=== PATIENT | female | born 1960 | race Caucasian/White ===

== ENCOUNTER 2016-07-05 11:56 | Inpatient (IN) | payer SELFPAY ==
[~2016-07-05] VITALS: Ht 157.5 cm; Wt 85.6 kg
[~2016-07-05 11:56] MED LIST: ADDE10XR PO; CITA20 PO; CLAR5TAB PO; CLIN1CAP6 PO; HYDR-3129 PO; MINO100T PO; NORC7.5T PO; ZOLP10TA3 PO
[2016-07-05 11:58] VITALS: BP 147/96; PULSE 110; RESP 20; TEMP 97.9; O2SAT 99
--- NOTE | 2016-07-05 12:04 | PD ---
Physical Exam Date Seen by Provider: Jul 05, 2016 Time Seen by Provider: 12:02 Narrative 55 yo female that fell while drinking on friday into her left wrist. No head injury or loss of consciousness. Pain to the left wrist. Pain not improved thus she came here. No other injuries reported. Pain is 7/10. Vitals sign stable. Patient awaiting bed placement Data Data Last Documented VS Vital Signs Date Time Temp Pulse Resp B/P Pulse Ox O2 Delivery O2 Flow Rate FiO2 07/05/16 11:58 97.9 110 20 147/96 99 Room Air [facility] Medical Record Reviewed: Yes Supervised Visit with JOSE LUIS: Lobo Bernstein Jul 05, 2016 12:04
--- NOTE | 2016-07-05 12:21 | PD ---
HPI Chief Complaint: Injury Time Seen by Provider: 12:17 Travel History International Travel<30 days: No Contact w/Intl Traveler<30days: No Traveled to known affect area: No History of Present Illness HPI 55-year-old female presents to the emergency Department with complaint of left wrist pain since Friday after tripping and falling while intoxicated. Denies paresthesias, loss of sensation to the affected extremity. Reports his range of motion, swelling, and pain to the left wrist. Denies fever, chills, nausea, vomiting. Has taken ibuprofen and last took today prior to arrival. Pain is constant and aggravated with movement and palpation. Has no other medical complaints. No other modifying factors or associated signs and symptoms. PFSH Past Medical History Hx Anticoagulant Therapy: Yes (ASA PO DAILY) ADD: Yes Arthritis: Yes Autoimmune Disease: Yes (FIBROMYLGIA) Blood Disorders: Yes (CLOTTING FACTOR-CARDIOLUPIN ANTIBODY) Depression: Yes Cancer: No Cardiovascular Problems: No Diabetes: No Diminished Hearing: No Endocrine: No Gastrointestinal Disorders: Yes (REFLUX) Genitourinary: No Hepatitis: No Hiatal Hernia: Yes Immune Disorder: No Musculoskeletal: Yes (BACK FRACTURE, CHRONIC BACK AND ANKLE PAIN,NECK, ARTHRITIES,OSTEOPOROSIS) Neurologic: No Psychiatric: Yes (ANXIETY DEPRESSION) Respiratory: Yes (COPD) Migraines: Yes Thyroid Disease: No Tetanus Vaccination: Unknown Tubal Ligation: Yes Past Surgical History Abdominal Surgery: Yes (GASTRIC BYPASS, HERNIA REPAIR) Body Medical Devices: HARDWARE IN RIGHT ANKLE Cholecystectomy: Yes Gynecologic Surgery: Yes (TUBAL LIGATION) Hysterectomy: Yes Oral Surgery: Yes (TONSILECTOMY) Pacemaker: No Tonsillectomy: Yes Other Surgery: Yes (HERNIA REPAIR) Family History Family Myocardial Infarction: Yes Social History Alcohol Use: Yes (WEEKLY) Tobacco Use: Yes (1 PPD) Substance Use: Yes (ALCOHOL ABUSE) Allergies-Medications (Allergen,Severity, Reaction): Coded Allergies: Darvocet-N 100 (Verified Allergy, Severe, NAUSEA, 07/05/16) *MDRO Multi-Drug Resistant Organism (Verified Adverse Reaction, Unknown, ) 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 HEAD: Atraumatic. Normocephalic. EYES: Pupils equal and round. No scleral icterus. No injection or drainage. ENT: Mucosa pink and moist. Airway patent. NECK: Trachea midline. CARDIOVASCULAR: Regular rate. RESPIRATORY: No accessory muscle use. GASTROINTESTINAL: Rounded. MUSCULOSKELETAL: Left wrist is edematous and ecchymosis noted to the anterior aspect; without erythema; no obvious deformity; with tenderness on palpation; fingers with full range of motion and sensory intact. Left upper extremity supple and non-tense a 2+ radial pulses and sensory intact. No obvious deformities. No clubbing. No cyanosis. NEUROLOGICAL: Awake and alert. Oriented 3. No obvious cranial nerve deficits. Motor grossly within normal limits. Normal speech. PSYCHIATRIC: Appropriate mood and affect; insight and judgment normal. Data Data Last Documented VS Vital Signs Date Time Temp Pulse Resp B/P Pulse Ox O2 Delivery O2 Flow Rate FiO2 07/05/16 11:58 97.9 110 20 147/96 99 Room Air Orders Wrist, Complete ([id number]) (07/05/16 12:14) Acetamin-Hydrocod 325-5 Mg ([place] 5-325 (07/05/16 13:30) Basic Metabolic Panel (Bmp) (07/05/16 15:54) Complete Blood Count With Diff (07/05/16 15:54) Prothrombin Time / Inr (Pt) (07/05/16 15:54) Act Partial Throm Time (Ptt) (07/05/16 15:54) Iv Access Insert/Monitor (07/05/16 15:54) Sodium Chloride 0.9% Flush (Ns Flush) (07/05/16 16:00) Electrocardiogram (07/05/16 15:54) Splint Or Brace Apply/Monitor (07/05/16 16:04) Sling Cradle Arm (07/05/16 ) Chest, Pa & Lat (07/05/16 ) Admit Order (Ed Use Only) (07/05/16 16:32) Consult Orthopedic (07/05/16 ) Fiberglass Sugartong Sp Ad Arm (07/05/16 ) Sling Cradle Arm (07/05/16 ) Diet Regular Basic (07/05/16 Dinner) [facility] Medical Decision Making Medical Screen Exam Complete: Yes Emergency Medical Condition: Yes Medical Record Reviewed: Yes Differential Diagnosis Wrist fracture, wrist dislocation, wrist sprain Narrative Course 55-year-old female with left wrist injury. Patient previously took ibuprofen prior to arrival. Left wrist x-ray ordered. 1300: Left wrist x-ray concludes an impacted fracture of the distal radius. Callout to hand placed. 0329: I spoke with Dr. Gleason and he is reviewing the x-ray and will call back. I spoke with Dr. Chacon, and the patient will be admitted to medical. Physician Communication Physician Communication Dr. Gleason, ortho; Dr Chacon Diagnosis Primary Impression: Left wrist fracture Qualified Code: S62.102A - Left wrist fracture, closed, initial encounter Admitting Information Admitting Physician Requests: Admit Additional Instructions: Tylenol or ibuprofen as directed and as needed to reduce pain Rest, ice, compress, and elevate extremity to decrease pain and inflammation Jose F wrap for support Splint for support Avoid aggravating activity; increase activity as tolerated Follow-up with primary care provider Return to the emergency department immediately with worsening symptoms Sara Hernandez [facility] Jul 05, 2016 12:21
--- NOTE | 2016-07-05 12:49 | RADRPT ---
EXAM DATE/TIME: 07/05/2016 12:36 [facility] COMPARISON: No previous studies available for comparison. INDICATIONS : Left wrist pain, fall. MEDICAL HISTORY : None. SURGICAL HISTORY : None. ENCOUNTER: Initial ACUITY: 2 days PAIN SCORE: 10/10 LOCATION: Left lateral wrist FINDINGS: There is an impacted fracture of the distal radius. Ulna is intact. Carpals intact. CONCLUSION: Impacted fracture distal radius. Lobito Azevedo MD FACR on July 05, 2016 at 12:35 Board Certified Radiologist. This report was verified electronically.
[2016-07-05] MEDS ORDERED: ACETAMINOPHEN/HYDROcodone 325 MG/5 MG TAB PO ONE (13:30)
[2016-07-05] MEDS ORDERED: SODIUM CHLORIDE 0.9% FLUSH 10 ML FLUSH IV FLUSH PRN (16:00)
--- NOTE | 2016-07-05 16:31 | RADRPT ---
EXAM DATE/TIME: 07/05/2016 00:00 [facility] COMPARISON: No previous studies available for comparison. INDICATIONS : Evaluate for pneumonia, pneumothorax or communicable. Pre-op, left wrist surgery. MEDICAL HISTORY : None. SURGICAL HISTORY : None. ENCOUNTER: Initial ACUITY: 1 day PAIN SCORE: 0/10 LOCATION: Bilateral chest FINDINGS: PA and lateral views of the chest demonstrate the lungs to be symmetrically aerated without evidence of mass, infiltrate or effusion. The cardiomediastinal contours are unremarkable. Osseous structure s are intact. CONCLUSION: No acute disease. Lobito Azevedo MD FACR on July 05, 2016 at 16:29 Board Certified Radiologist. This report was verified electronically.
--- NOTE | 2016-07-05 17:15 | HHI.HP ---
. [facility] Service [place] [facility] Primary Care Physician No Primary Care Physician Admission Diagnosis impacted fracture of L distal radius Diagnoses: Chief Complaint: Left wrist pain Travel History International Travel<30 Days: No Contact w/Intl Traveler <30 Da: No Traveled to Known Affected Are: No History of Present Illness Ms. Saldaña is a 55-year-old female with a known medical history of alcohol and tobacco abuse, attention deficit disorder, COPD, depression, fibromyalgia and Cardiolipin antibody coagulation disorder who presented to the emergency department after sustaining a fall, injuring her wrist, while intoxicated with alcohol with complains of continued wrist pain. Patient states that she tripped over her dog, denies any dizziness, lightheadedness, LOC or hitting her head. At this time, patient complains of throbbing pain in left thumb and wrist, 10/ 10 on pain scale, and sharp pain with any movement. Denies any numbness, tingling or loss of sensation. Patient does admit drinking a bottle of wine daily. Denies ever having any withdrawal symptoms, seizures or delirium tremens. Patient also states that she takes Ibuprofen 800mg PO roughly every other day for generalized pain. Denies taking any associated GI prophylaxis. Patient denies any recent change in bowel or bladder habits, denies any blood in stool. Denies any recent chest pain, shortness of breath, cough, fever or chills. Review of Systems Except as stated in HPI: all other systems reviewed are Neg Left wrist pain, throbbing in nature. Denies numbness, tingling. Sensation intact. Past Family Social History Past Medical History Arthritis Depression GERD Anxiety COPD Fibromyalgia Cardiolipin clotting factor antibody Chronic back pain with spinal stenosis ETOH abuse Tobacco abuse Past Surgical History Gastric bypass 1992 Hernia repair Tubal ligation Tonsillectomy Right ankle hardware 2012, s/p open reduction internal fixation of a bimalleolar fracture Cholecystectomy Hysterectomy Reported Medications none Allergies: Coded Allergies: Darvocet-N 100 (Verified Allergy, Severe, NAUSEA, 07/05/16) *MDRO Multi-Drug Resistant Organism (Verified Adverse Reaction, Unknown, ) MRSA ankle 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 Mother medical history significant for colon cancer Social History Patient admits to smoking cigarettes, 1 ppd since she ishan 12 years old. Also admits to consuming at least a bottle of wine on a daily basis. Denies any illicit drug use. Physical Exam Vital Signs Vital Signs Date Time Temp Pulse Resp B/P Pulse Ox O2 Delivery O2 Flow Rate FiO2 07/05/16 11:58 97.9 110 20 147/96 99 Room Air Physical Exam GENERAL: Well-nourished, well-developed patient in NAD. SKIN: Warm and dry. No rash. HEENT: Normocephalic. Atraumatic. Pupils equal and round. No scleral icterus. No injection or drainage. No nasal bleeding or discharge. Mucous membranes pink and moist. Supple. Trachea midline. CARDIOVASCULAR: Regular rate and rhythm. S1, S2 noted. No murmur appreciated. RESPIRATORY: No accessory muscle use. Clear to auscultation. Breath sounds equal bilaterally. GASTROINTESTINAL: Abdomen soft, non-tender, nondistended. Normoactive bowel sounds x4. Prior surgical scars from cholecystectomy noted. MUSCULOSKELETAL: Left arm sling in place, with abdoul wrap and dressing to left wrist. Sensation intake, capillary refill < 2 seconds to left hand fingertips. Extremities without clubbing, cyanosis, or edema. NEUROLOGICAL: Awake and alert. No obvious cranial nerve deficits. Motor grossly within normal limits. 5/5 muscle strength in bilateral upper and lower extremities otherwise. Normal speech. PSYCHIATRIC: Appropriate mood and affect; insight and judgment normal. Imaging Last Impressions Wrist X-Ray 07/05/16 1214 Signed Impressions: Service Date/Time: Tuesday, July 05, 2016 12:36 - CONCLUSION: Impacted fracture distal radius. Lobito Azevedo MD FACR Chest X-Ray 07/05/16 0000 Signed Impressions: Service Date/Time: Tuesday, July 05, 2016 00:00 - CONCLUSION: No acute disease. Lobito Azevedo MD FACR Assessment and Plan Assessment and Plan Ms. Saldaña is a 55-year-old female with a known medical history of alcohol and tobacco abuse, Attention deficit disorder, COPD, depression, fibromyalgia and Cardiolipin antibody coagulation disorder who presented to the emergency department after sustaining a fall, injuring her wrist, while intoxicated with alcohol with complains of continued wrist pain. Left wrist pain secondary to impacted fracture of distal radius - Wrist x-ray reviewed by me, left impacted fracture distal radius. - Consult Orthopedic surgeon, appreciate input. Possible surgery tomorrow. NPO after midnight. - Control pain, [place] PO available per pain scale, Morphine IV PRN breakthrough pain. - Constipation prevention, milk of magnesium larry-Colace and Dulcolax suppository PRN Hypertension: Monitor. Clonidine 1 mg PO PRN systolic > 160 / diastolic >90. EKG ordered and awaiting results, not yet performed. Alcohol abuse: Counseled patient on alcohol use, encouraged cessation. CIWA protocol. Seizure precautions. Monitor withdrawal symptoms. Ativan IV available PRN for withdrawal symptoms. Start Folate1 mg PO daily, Thiamine 100mg PO daily , and Multivitamin 1 tab PO daily. Tobacco abuse: Encourage cessation. GI Prophylaxis: Protonix 40 mg PO daily. DVT prophylaxis: SCDs/TEDs Written by Michelle Arellano, acting as scribe for Dr. Chacon on 07/05/16 at 1800. This note was transcribed by scribe Michelle Arellano. I, Dr. Cyndee Chacon personally performed the history, physical exam, and medical decision making; and confirmed the accuracy of the information in the transcribed note. Authenticated by Dr. Cyndee Chacon on 07/05/16 at 1800. Code Status full Discussed Condition With patient and RN Physician Certification 2 Midnight Certification Type: Admission for Inpatient Services Order for Inpatient Services The services are ordered in accordance with Medicare regulations or non- Medicare payer requirements, as applicable. In the case of services not specified as inpatient-only, they are appropriately provided as inpatient services in accordance with the 2-midnight benchmark. Estimated LOS (days): 2 days is the estimated time the patient will need to remain in the hospital, assuming treatment plan goals are met and no additional complications. Post-Hospital Plan: Home Michelle Arellano Jul 05, 2016 17:15 Cyndee Chacon MD Jul 05, 2016 19:09
[2016-07-05] MEDS ORDERED: ONDANSETRON HCL 4 MG/2 ML VIAL IV PRN (18:00)
[2016-07-05] MEDS ORDERED: cloNIDine HCL 0.1 MG TAB PO PRN (18:00)
[2016-07-05 18:01] VITALS: PULSE 74; RESP 20
[2016-07-05 18:10] LABS: HEMATOCRIT 44.2 % (35.0-46.0); MEAN CELL VOLUME 91.8 FL (80.0-100.0); MEAN CORPUSCULAR HEMOGLOBIN 31.2 PG (27.0-34.0); PLATELET COUNT 250 TH/MM3 (150-450); RED BLOOD COUNT 4.82 MIL/MM3 (4.00-5.30); RED CELL DISTRIBUTION WIDTH 14.8 % (11.6-17.2); WHITE BLOOD COUNT 9.5 TH/MM3 (4.0-11.0)
[2016-07-05 18:12] LABS: HEMO FLAGS AUTO DIFF
[2016-07-05] MEDS ORDERED: DOCUSATE SODIUM 50 MG/SENNA 8.6 MG TAB PO PRN (18:15)
[2016-07-05] MEDS ORDERED: BISACODYL 10 MG SUPP RECTAL PRN (18:15)
[2016-07-05 18:27] LABS: APTT (PATIENT) 31.1 SEC (24.3-30.1)
[2016-07-05 18:37] LABS: BICARBONATE 28.1 MEQ/L (21.0-32.0); POTASSIUM 4.3 MEQ/L (3.5-5.1)
[2016-07-05 19:13] LABS: BANDS 1 % (0-6); EOSINOPHILS 3 % (0-4); NEUTROPHIL # MANUAL DIFF 5.7 TH/MM3 (1.8-7.7); POLYS (SEG NEUTROPHILS) 59 % (16-70); WBC DIFF SAMPLE 100
[2016-07-05 19:14] LABS: PLATELET ESTIMATE SMEAR NORMAL (NORMAL); PLATELET MORPHOLOGY NORMAL (NORMAL); SCAN/DIFF FINAL DIFF MANUAL
[2016-07-05] MEDS ORDERED: LORazepam 1 MG TAB PO PRN (19:15)
[2016-07-05] MEDS ORDERED: LORazepam 2 MG TAB PO PRN (19:15)
[2016-07-05] MEDS ORDERED: LORazepam 2 MG/ML VIAL IV PUSH PRN ×4 (19:15)
[2016-07-05] MEDS ORDERED: FLUMAZENIL 0.5 MG/5 ML VIAL IV PUSH PRN (19:15)
[2016-07-05] MEDS ORDERED: ACETAMINOPHEN/HYDROcodone 325 MG/5 MG TAB PO PRN (19:15)
[2016-07-05] MEDS: MULTIVITAMINS/MINERALS THERAPEUTIC TAB PO SCH (19:51)
[2016-07-05] MEDS: THIAMINE HCL 100 MG TAB PO SCH (19:51)
[2016-07-05] MEDS: PANTOPRAZOLE SOD 40 MG DELAYED RELEASE TAB PO SCH (19:52)
[2016-07-05] MEDS: FOLIC ACID 1 MG TAB PO SCH (19:52)
[2016-07-05] MEDS: ACETAMINOPHEN/HYDROcodone 325 MG/10 MG TAB PO PRN (19:52)
[2016-07-05] MEDS: SODIUM CHLOR 0.9% 1000 ML INJ 1,000 ML IV SCH (19:53)
[2016-07-05] MEDS ORDERED: MAGNESIUM HYDROXIDE SUSP 30 ML CUP PO PRN (21:15)
[2016-07-05 22:06] VITALS: BP 122/86; PULSE 80; RESP 16; TEMP 98; O2SAT 96
[2016-07-05] MEDS: MORPHINE SULFATE 4 MG/ML INJ IV PUSH PRN (22:19)
[2016-07-06] VITALS (8 sets, daily range): BP systolic 110–143; BP diastolic 55–88; PULSE 55–71; RESP 16–20; TEMP 96.8–98.2; O2SAT 92–97
[2016-07-06] MEDS: ACETAMINOPHEN/HYDROcodone 325 MG/10 MG TAB PO PRN ×2 (01:57→08:38)
[2016-07-06] MEDS: MORPHINE SULFATE 4 MG/ML INJ IV PUSH PRN ×2 (04:13→08:38)
[2016-07-06] MEDS ORDERED: MAGNESIUM HYDROXIDE SUSP 30 ML CUP PO SCH (06:00)
[2016-07-06] MEDS: THIAMINE HCL 100 MG TAB PO SCH (08:37)
[2016-07-06] MEDS: PANTOPRAZOLE SOD 40 MG DELAYED RELEASE TAB PO SCH (08:37)
[2016-07-06] MEDS: MULTIVITAMINS/MINERALS THERAPEUTIC TAB PO SCH (08:38)
[2016-07-06] MEDS: FOLIC ACID 1 MG TAB PO SCH (08:38)
[2016-07-06] MEDS: SODIUM CHLOR 0.9% 1000 ML INJ 1,000 ML IV SCH ×2 (08:40→17:33)
[2016-07-06] MEDS ORDERED: ACETAMINOPHEN 1000 MG/100 ML VIAL IV ONE (10:17)
[2016-07-06] MEDS ORDERED: GENTAMICIN SULFATE 80 MG/2 ML VIAL ONE (10:23)
[2016-07-06] MEDS ORDERED: ceFAZolin INJ 1,000 MG VIAL ONE (10:23)
[2016-07-06] MEDS ORDERED: VANCOMYCIN HCL 1000 MG VIAL ONE (10:23)
[2016-07-06] MEDS ORDERED: PERC5TAB12 PO (10:26)
[2016-07-06] MEDS ORDERED: SODIUM CHLORIDE 0.9% FLUSH 10 ML FLUSH IV FLUSH PRN (10:30)
[2016-07-06] MEDS ORDERED: ONDANSETRON HCL 4 MG/2 ML VIAL IV PRN (10:30)
[2016-07-06] MEDS ORDERED: ZOLPIDEM TARTRATE 5 MG TAB PO PRN ×2 (10:30→13:15)
[2016-07-06] MEDS ORDERED: oxyCODONE/ACETAMINOPHEN 5 MG/325 MG TAB PO PRN (10:30)
[2016-07-06] MEDS ORDERED: KETOROLAC TROMETHAMINE 30 MG/ML (IVP) VIAL IVP ONE (10:30)
--- NOTE | 2016-07-06 11:09 | PD.CONS ---
cc: Angus Gleason Jr., MD HPI Service [facility] Sur[facility] Consult Requested By Primary Care Physician No Primary Care Physician Admission Diagnosis impacted fracture of L distal radius Diagnoses: Chief Complaint: left distal radius fx History of Present Illness 55-year-old female with a known medical history of alcohol and tobacco abuse, attention deficit disorder, COPD, depression, fibromyalgia and Cardiolipin antibody coagulation disorder who presented to the emergency department after sustaining a fall, injuring her wrist, while intoxicated with alcohol with complains of continued wrist pain. X-ray taken the emergency department reveal displaced and impacted left distal radius. Denies any head injuries. Denies loss of consciousness. Currently patient's pain is 6 out of 10, exacerbated by any range of motion, relieved at rest and with IV pain medicine, pain is sharp nonradiating, not associated with any paresthesia and numbness to the extremity. She denies any chest pain or shortness of breath. Review of Systems Except as stated in HPI: all other systems reviewed are Neg Left wrist pain, throbbing in nature. Denies numbness, tingling. Sensation intact. Past Family Social History Past Medical History Arthritis Depression GERD Anxiety COPD Fibromyalgia Cardiolipin clotting factor antibody Chronic back pain with spinal stenosis ETOH abuse Tobacco abuse Past Surgical History Gastric bypass 1992 Hernia repair Tubal ligation Tonsillectomy Right ankle hardware 2012, s/p open reduction internal fixation of a bimalleolar fracture Cholecystectomy Hysterectomy Reported Medications none Allergies: Coded Allergies: Darvocet-N 100 (Verified Allergy, Severe, NAUSEA, 07/05/16) *MDRO Multi-Drug Resistant Organism (Verified Adverse Reaction, Unknown, ) MRSA ankle wound 02/2015 Active Ordered Medications Current Medications Medications (Trade) Dose Ordered Sig/Juan Route Start Time Stop Time Status Last Admin (NS Flush) 2 ml UNSCH PRN IV FLUSH 07/05/16 16:00 Family History Father medical history significant for CA. Mother medical history significant for colon cancer Social History Patient admits to smoking cigarettes, 1 ppd since she ishan 12 years old. Also admits to consuming at least a bottle of wine on a daily basis. Denies any illicit drug use. Past Family Social History Past Medical History Arthritis Depression GERD Anxiety COPD Fibromyalgia Cardiolipin clotting factor antibody Chronic back pain with spinal stenosis ETOH abuse Tobacco abuse Past Surgical History Gastric bypass 1992 Hernia repair Tubal ligation Tonsillectomy Right ankle hardware 2012, s/p open reduction internal fixation of a bimalleolar fracture Cholecystectomy Hysterectomy Allergies: Coded Allergies: Darvocet-N 100 (Verified Allergy, Severe, NAUSEA, 07/05/16) *MDRO Multi-Drug Resistant Organism (Verified Adverse Reaction, Unknown, ) MRSA ankle wound 02/2015 Active Ordered Medications Current Medications Medications (Trade) Dose Ordered Sig/Juan Route Start Time Stop Time Status Last Admin (NS Flush) 2 ml UNSCH PRN IV FLUSH 07/05/16 16:00 (Folate) 1 mg DAILY PO 07/05/16 18:00 07/10/16 17:59 07/06/16 08:38 (Vitamin B1) 100 mg DAILY PO 07/05/16 18:00 07/06/16 08:37 (Theragran M Tab) 1 tab DAILY PO 07/05/16 18:00 07/10/16 17:59 07/06/16 08:38 (Zofran Inj) 4 mg Q6H PRN IV 07/05/16 18:00 (Protonix) 40 mg DAILY PO 07/05/16 18:00 07/06/16 08:37 Clonidine 0.1 mg 0.1 mg Q6H PRN PO 07/05/16 18:00 (NS 1000 ml Inj) 1,000 ml @ 75 mls/hr [id number] IV 07/05/16 18:00 07/06/16 08:40 (Dulcolax Supp) 10 mg DAILY PRN RECTAL 07/05/16 18:15 (Romazicon Inj) 0.2 mg Q1M PRN IV PUSH 07/05/16 19:15 (Ativan) 1 mg Q4H PRN PO 07/05/16 19:15 (Ativan Inj) 1 mg Q4H PRN IV PUSH 07/05/16 19:15 (Ativan) 2 mg Q2H PRN PO 07/05/16 19:15 (Ativan Inj) 2 mg Q2H PRN IV PUSH 07/05/16 19:15 (Ativan Inj) 2 mg Q1H PRN IV PUSH 07/05/16 19:15 (Ativan Inj) 2 mg Q15M PRN IV PUSH 07/05/16 19:15 (Lucy-Colace) 1 tab BID PRN PO 07/05/16 21:15 (Milk Of Magnesia Liq) 30 ml DAILY PRN PO 07/05/16 21:15 (NS Flush) 2 ml UNSCH PRN IV FLUSH 07/06/16 10:30 Sodium Chloride 2 ml 2 ml BID IV FLUSH 07/06/16 21:00 (Ancef Inj/NS Inj) 100 ml @ 200 mls/hr Q6H IV 07/06/16 16:00 (Morphine Inj) 5 mg Q3H PRN IV PUSH 07/06/16 10:30 (Percocet 5-325 Mg) 1 tab Q4H PRN PO 07/06/16 10:30 (Percocet 5-325 Mg) 2 tab Q6H PRN PO 07/06/16 10:30 (Zofran Inj) 4 mg Q6H PRN IV 07/06/16 10:30 (Colace) 100 mg BID PO 07/06/16 21:00 (Ambien) 5 mg HS PRN PO 07/06/16 10:30 Reported Meds & Active Scripts Active Percocet (Oxycodone-Acetaminophen) 5-325 mg Tab 1 Tab PO Q4H PRN Family History Father medical history significant for CA. Mother medical history significant for colon cancer Social History Patient admits to smoking cigarettes, 1 ppd since she ishan 12 years old. Also admits to consuming at least a bottle of wine on a daily basis. Denies any illicit drug use. Physical Exam Vital Signs Vital Signs Date Time Temp Pulse Resp B/P Pulse Ox O2 Delivery O2 Flow Rate FiO2 07/06/16 08:00 97.6 55 16 111/69 96 07/06/16 04:00 97.1 71 20 115/69 94 07/06/16 00:00 98.2 68 20 119/55 97 07/05/16 22:06 98.0 80 16 122/86 96 07/05/16 18:01 74 20 07/05/16 11:58 97.9 110 20 147/96 99 Room Air Physical Exam Alert awake and oriented x 3. No acute distress. Head: NC/AT Neck: No pain with any range of motion and neck. No tenderness to palpation along posterior cervical elements. Negative Spurling. Pulmonary: Normal respiratory effort. RIGHT upper extremity: No deformities. Intact sensation distally in median, ulnar, and radial nerve. Intact motor in anterior interosseous, posterior interosseous, and ulnar nerve. 2+ radial artery pulses. Good cap refill. LEFT upper extremity exam: splint in place. Fingers are warm and well- perfused. Mild decrease in median n sensation, otherwise grossly neurovascularly intact. Good cap refill. lower extremity: No deformity. Neurovascularly intact, +EHL/FHL, + PT/DP pulses. Supple compartments. Negative Homans sign. Laboratory Laboratory Tests Test 07/05/16 17:45 White Blood Count 9.5 Red Blood Count 4.82 Hemoglobin 15.0 Hematocrit 44.2 Mean Corpuscular Volume 91.8 Mean Corpuscular Hemoglobin 31.2 Mean Corpuscular Hemoglobin 34.0 Concent Red Cell Distribution Width 14.8 Platelet Count 250 Mean Platelet Volume 8.8 Neutrophils (%) (Auto) Lymphocytes (%) (Auto) Monocytes (%) (Auto) Eosinophils (%) (Auto) Basophils (%) (Auto) Neutrophils # (Auto) Lymphocytes # (Auto) Monocytes # (Auto) Eosinophils # (Auto) Basophils # (Auto) CBC Comment AUTO DIFF Differential Total Cells 100 Counted Neutrophils % (Manual) 59 Band Neutrophils % 1 Lymphocytes % 32 Monocytes % 5 Eosinophils % 3 Neutrophils # (Manual) 5.7 Differential Comment FINAL DIFF MANUAL Platelet Estimate NORMAL Platelet Morphology Comment NORMAL Prothrombin Time 11.0 Prothromb Time International 1.0 Ratio Activated Partial 31.1 Thromboplast Time Sodium Level 142 Potassium Level 4.3 Chloride Level 106 Carbon Dioxide Level 28.1 Anion Gap 8 Blood Urea Nitrogen 9 Creatinine 0.78 Estimat Glomerular Filtration 76 Rate Random Glucose 84 Calcium Level 8.8 Result Diagram: 07/05/16 1745 07/05/16 1745 Imaging Last 72 hours Impressions Wrist X-Ray 07/05/16 1214 Signed Impressions: Service Date/Time: Tuesday, July 05, 2016 12:36 - CONCLUSION: Impacted fracture distal radius. Lobito Azevedo MD FACR Chest X-Ray 07/05/16 0000 Signed Impressions: Service Date/Time: Tuesday, July 05, 2016 00:00 - CONCLUSION: No acute disease. Lobito Azevedo MD FACR Assessment & Plan Assessment and Plan 55-year-old female status post fall sustaining a closed left impacted and displaced distal radius fracture. The fracture is unstable and not acceptably aligned. I recommend operative intervention with closed reduction with pinning versus open reduction internal fixation with a volar plate. I discussed my treatment plans with the patient, as well as risks, benefits and alternatives of surgical Intervention versus nonoperative treatment. In this case, the risks of operative intervention involves bleeding, infection, risks of damage to neurovascular structures, the risk of needing further surgery, posttraumatic arthritis and the risks involved with complication from anesthesia. We will proceed with the above procedure. The patient accepts these risks; understands and agrees with my recommendations. I also discussed my proposed postoperative care and follow-up plan. All questions were answered. Plan for OR []. Nothing by mouth []. Patient consented. Thanks for the consult, thanks for allowing me to participate in this patient's medical care. Angus Gleason Jr., MD Jul 06, 2016 11:09
[2016-07-06] MEDS ORDERED: DO NOT ADM ANY ANTICOAGULANT DRUGS PRN (11:47)
[2016-07-06] MEDS ORDERED: *morphine SULFATE 8 MG/ML PERIprocedure ONLY ONE (12:02)
[2016-07-06] MEDS ORDERED: fentaNYL CITRATE 250 MCG/5 ML AMP ONE (12:56)
--- NOTE | 2016-07-06 12:59 | HHI.PR ---
Subjective Remarks Pt just came back from sx. Pain is not well controlled at this time. denies any CP/SOB/N/V would like something for iching and something for sleep at night Objective Vitals Vital Signs Date Time Temp Pulse Resp B/P Pulse Ox O2 Delivery O2 Flow Rate FiO2 07/06/16 12:35 Nasal Cannula 2.00 07/06/16 12:15 53 16 99/54 100 Nasal Cannula 2 07/06/16 12:00 58 16 96/55 100 Nasal Cannula 2 07/06/16 11:45 98.1 70 16 103/67 100 Nasal Cannula 2 07/06/16 08:00 97.6 55 16 111/69 96 07/06/16 04:00 97.1 71 20 115/69 94 07/06/16 00:00 98.2 68 20 119/55 97 07/05/16 22:06 98.0 80 16 122/86 96 07/05/16 18:01 74 20 I/O 07/05/16 07/05/16 07/05/16 07/06/16 07/06/16 07/06/16 07:00 15:00 23:00 07:00 15:00 23:00 Intake Total 298 ml 1084 ml Output Total 0 ml Balance 298 ml 1084 ml Intake Oral 0 ml IV Total 298 ml 384 ml Other 700 ml Output Urine Total 0 ml Estimated Blood Loss 0 ml Other 0 ml Result Diagram: 07/05/16 1745 07/05/16 1745 Imaging Last Impressions Wrist X-Ray 07/05/16 1214 Signed Impressions: Service Date/Time: Tuesday, July 05, 2016 12:36 - CONCLUSION: Impacted fracture distal radius. Lobito Azevedo MD FACR Chest X-Ray 07/05/16 0000 Signed Impressions: Service Date/Time: Tuesday, July 05, 2016 00:00 - CONCLUSION: No acute disease. Lobito Azevedo MD FACR Objective Remarks GENERAL: Well-nourished, well-developed patient in NAD. CARDIOVASCULAR: Regular rate and rhythm. S1, S2 noted. No murmur appreciated. RESPIRATORY: No accessory muscle use. Clear to auscultation. Breath sounds equal bilaterally. GASTROINTESTINAL: Abdomen soft, non-tender, nondistended. MUSCULOSKELETAL: Left arm sling in place, with abdoul wrap and dressing to left wrist. Sensation intake, capillary refill < 2 seconds to left hand fingertips. Extremities without clubbing, cyanosis, or edema. NEUROLOGICAL: Awake and alert. No obvious cranial nerve deficits. Motor grossly within normal limits. PSYCHIATRIC: Appropriate mood and affect; insight and judgment normal. A/P Assessment and Plan Left wrist pain secondary to impacted fracture of distal radius - Wrist x-ray reviewed by me, left impacted fracture distal radius. - s/p ORIF left wrist fx pod#0 - continue pain control per orthopedic sx. - Constipation prevention, milk of magnesium larry-Colace and Dulcolax suppository PRN Hypertension: Monitor. Clonidine 1 mg PO PRN systolic > 160 / diastolic >90. Alcohol abuse: Counseled patient on alcohol use, encouraged cessation. CIWA protocol. Seizure precautions. Monitor withdrawal symptoms. Ativan IV available PRN for withdrawal symptoms. Start Folate1 mg PO daily, Thiamine 100mg PO daily , and Multivitamin 1 tab PO daily. Tobacco abuse: Encourage cessation. GI Prophylaxis: Protonix 40 mg PO daily. Discharge Planning d/c pending better pain control and when cleared by orthopedic sx Cyndee Chacon MD Jul 06, 2016 12:59
[2016-07-06] MEDS ORDERED: LACTATED RINGER'S 1000 ML INJ 1,000 ML IV ONE (13:10)
[2016-07-06] MEDS ORDERED: ONDANSETRON HCL 4 MG/2 ML VIAL IV PUSH ONE (13:10)
[2016-07-06] MEDS ORDERED: PROPOFOL 200 MG/20 ML AMP IV ONE (13:10)
[2016-07-06] MEDS ORDERED: diphenhydrAMINE HCL ELIXIR 12.5 MG/5 ML CUP PO PRN (13:15)
[2016-07-06] MEDS: oxyCODONE/ACETAMINOPHEN 5 MG/325 MG TAB PO PRN ×2 (13:27→20:16)
--- NOTE | 2016-07-06 13:55 | RADRPT ---
EXAM DATE/TIME: 07/06/2016 11:28 [facility] COMPARISON: WRIST LEFT COMPLETE ([id number]), July 05, 2016, 12:36. INDICATIONS : Reduction with pinning of left wrist fracture MEDICAL HISTORY : None. SURGICAL HISTORY : None. ENCOUNTER: Initial ACUITY: 1 day PAIN SCORE: Non-responsive. LOCATION: Left wrist FINDINGS: Frontal and lateral spot intraoperative fluoroscopic views of the wrist demonstrate anatomic alignmen t of distal radius fracture with 2 external fixation pins noted. CONCLUSION: Postoperative changes. Terry Dee MD on July 06, 2016 at 13:51 Board Certified Radiologist. This report was verified electronically.
[2016-07-06] MEDS: MORPHINE SULFATE 8 MG/ML INJ IV PUSH PRN ×3 (15:14→21:27)
[2016-07-06] MEDS: DOCUSATE SODIUM 50 MG/SENNA 8.6 MG TAB PO PRN ×2 (17:37→20:14)
--- NOTE | 2016-07-06 18:37 | PD.OP ---
cc: Angus Gleason Jr., MD Operative Report Date of Surgery: Jul 06, 2016 Preoperative Diagnosis: Impacted displaced left distal radius fracture Postoperative Diagnosis: Same Procedure: Closed reduction and pinning left distal radius Anesthesia: Gen. Surgeon: Angus Gleason Materials Buyer(s): Staff Resident Surgeon: None Operation and Findings: This patient sustained a fall resulting in displaced radius and ulna fractures. Informed consent was obtained from patient's parents preoperatively. The risk and benefits of surgery were discussed in detail with patient and family. Patient was brought to the operating room and placed on or table. General anesthesia was administered by anesthesiologist. Timeout procedure was performed. At this point attention was turned to reduction. Traction was applied. The fracture was manipulated under fluoroscopy. With gentle manipulation the fractures were reduced. Two [] K wires were used to stabilize the radius fracture in the coronal and sagittal plane. Multiplanar fluoroscopy confirmed adequate alignment of the fracture. A well-padded volar splint was placed. POSTP-OP PLAN OF ACTIVITY Antiocoagulation: SCD Weight bearing status: NWB Dressing: Do not remove splints Dispo: expected discharge when pain is controlled. ok to dc per ortho Angus Gleason Jr., MD Jul 06, 2016 18:37
--- NOTE | 2016-07-06 19:20 | EKG ---
Date Performed: 07/05/2016 Time Performed: 17:58:24 PTAGE: 55 years EKG: Sinus rhythm NORMAL ECG PREVIOUS TRACING : 02/14/2015 07.00 Compared to prior tracing no significant change DOCTOR: Elena Whittaker Interpretating Date/Time 07/06/2016 19:19:40
[2016-07-06] MEDS: DOCUSATE SODIUM 100 MG CAP PO SCH (20:14)
[2016-07-06] MEDS: SODIUM CHLORIDE 0.9% FLUSH 10 ML FLUSH IV FLUSH SCH (21:24)
[2016-07-06] MEDS: CALCIUM CARBONATE 500 MG CHEWABLE TAB CHEW PRN (21:25)
[2016-07-07] MEDS: MORPHINE SULFATE 8 MG/ML INJ IV PUSH PRN ×4 (00:26→11:25)
[2016-07-07] MEDS: CALCIUM CARBONATE 500 MG CHEWABLE TAB CHEW PRN (00:29)
[2016-07-07] MEDS: oxyCODONE/ACETAMINOPHEN 5 MG/325 MG TAB PO PRN ×3 (03:06→13:32)
[2016-07-07 03:49] VITALS: BP 113/64; PULSE 57; RESP 17; TEMP 96.7; O2SAT 95
[2016-07-07 06:50] LABS: HEMATOCRIT 37.3 % (35.0-46.0); REVIEW FLAG FINAL
[2016-07-07 07:47] VITALS: BP 140/79; PULSE 62; RESP 18; TEMP 96.6; O2SAT 100
[2016-07-07 08:49] VITALS: O2SAT 96
[2016-07-07] MEDS: SODIUM CHLOR 0.9% 1000 ML INJ 1,000 ML IV SCH (09:20)
[2016-07-07] MEDS: THIAMINE HCL 100 MG TAB PO SCH (09:23)
[2016-07-07] MEDS: DOCUSATE SODIUM 50 MG/SENNA 8.6 MG TAB PO PRN (09:23)
[2016-07-07] MEDS: MULTIVITAMINS/MINERALS THERAPEUTIC TAB PO SCH (09:23)
[2016-07-07] MEDS: DOCUSATE SODIUM 100 MG CAP PO SCH (09:23)
[2016-07-07] MEDS: SODIUM CHLORIDE 0.9% FLUSH 10 ML FLUSH IV FLUSH SCH (09:23)
[2016-07-07] MEDS: FOLIC ACID 1 MG TAB PO SCH (09:23)
[2016-07-07] MEDS: PANTOPRAZOLE SOD 40 MG DELAYED RELEASE TAB PO SCH (09:23)
[2016-07-07 11:43] VITALS: BP 132/72; PULSE 65; RESP 18; TEMP 97.6; O2SAT 100
--- NOTE | 2016-07-07 13:49 | HHI.PR ---
Subjective Remarks Pt tells me that she has pain 9-10/10. However when I'm in the room, pt sitting on recliner, eating lunch. Per RN, splint was loosened last night however pt has been asking regularly for the morphine. no CP/SOB/N/V reported Pt tells me that she has 2 excoriations on her right buttock and she is concerned because she has a prior hx of MRSA. Objective Vitals Vital Signs Date Time Temp Pulse Resp B/P Pulse Ox O2 Delivery O2 Flow Rate FiO2 07/07/16 11:43 97.6 65 18 132/72 100 07/07/16 08:49 96 21 07/07/16 07:47 96.6 62 18 140/79 100 07/07/16 03:49 96.7 57 17 113/64 95 07/06/16 23:54 97.8 61 16 133/72 94 07/06/16 19:44 97.8 60 17 110/57 95 07/06/16 19:18 Room Air 07/06/16 16:35 96 21 07/06/16 16:00 97.7 64 16 139/86 92 I/O 07/06/16 07/06/16 07/06/16 07/07/16 07/07/16 07/07/16 07:00 15:00 23:00 07:00 15:00 23:00 Intake Total 298 ml 1324 ml 1258 ml 911 ml 154 ml Output Total 0 ml Balance 298 ml 1324 ml 1258 ml 911 ml 154 ml Intake Oral 240 ml 960 ml 720 ml IV Total 298 ml 384 ml 298 ml 191 ml 154 ml Other 700 ml Output Urine Total 0 ml Estimated Blood Loss 0 ml Other 0 ml # Voids 4 3 3 # Bowel Movements 1 Result Diagram: 07/07/16 0529 07/05/16 1745 Imaging Last Impressions Wrist X-Ray 07/06/16 0000 Signed Impressions: Service Date/Time: Wednesday, July 06, 2016 11:28 - CONCLUSION: Postoperative changes. Terry Dee MD Chest X-Ray 07/05/16 0000 Signed Impressions: Service Date/Time: Tuesday, July 05, 2016 00:00 - CONCLUSION: No acute disease. Lobito Azevedo MD FACR Objective Remarks GENERAL: Well-nourished, well-developed patient in NAD. CARDIOVASCULAR: Regular rate and rhythm. No murmur appreciated. RESPIRATORY: No accessory muscle use. Clear to auscultation. Breath sounds equal bilaterally. GASTROINTESTINAL: Abdomen soft, non-tender, nondistended. MUSCULOSKELETAL: Left arm sling in place, with abdoul wrap and dressing to left wrist. Sensation intake, capillary refill < 2 seconds to left hand fingertips. Extremities without clubbing, cyanosis, or edema. NEUROLOGICAL: Awake and alert. No obvious cranial nerve deficits. Motor grossly within normal limits. PSYCHIATRIC: Appropriate mood and affect; insight and judgment normal. A/P Assessment and Plan Left wrist pain secondary to impacted fracture of distal radius - Wrist x-ray reviewed by me, left impacted fracture distal radius. - s/p ORIF left wrist fx pod#1 - continue pain control per orthopedic sx. - Constipation prevention, milk of magnesium larry-Colace and Dulcolax suppository PRN Pt would prefer to leave today however she had morning a couple hours ago and complains of pain not controlled. I explained to her that she must be off the morphine in order for us to discharge her. She is willing to try to stay off of it and if at the end of the day she doesn't require it, she can be discharged home. Pt on exam appears fairly comfortable, she is able to stand up and show me the excoriation on her buttocks without grimacing or showing signs of pain. Hypertension: Monitor. Clonidine 1 mg PO PRN systolic > 160 / diastolic >90. Alcohol abuse: Counseled patient on alcohol use, encouraged cessation. [facility] protocol. Seizure precautions. Monitor withdrawal symptoms. Ativan IV available PRN for withdrawal symptoms. on Folate, Thiamine and Multivitamin Tobacco abuse: Encourage cessation. GI Prophylaxis: Protonix 40 mg PO daily. Discharge Planning From an ortho standpoint, pt can be discharged however she claims her pain is not controlled. However she would prefer to go home later today. I explained to her that if her pain can be controlled w just PO meds, will d/c later today. Pt agrees w plan. Cyndee Chacon MD Jul 07, 2016 13:49
[2016-07-07] MEDS ORDERED: PERI8.6T PO (13:53)
--- NOTE | 2016-07-07 13:53 | HHI.DCPOC ---
Discharge Care Plan Diagnosis: (1) Left wrist fracture (2) Alcohol dependence Goals to Promote Your Health * To prevent worsening of your condition and complications * To maintain your health at the optimal level Directions to Meet Your Goals Take your medications as prescribed Follow your dietary instruction Follow activity as directed Keep your appointments as scheduled Take your immunizations and boosters as scheduled If your symptoms worsen call your PCP, if no PCP go to Urgent Care Center or Emergency Room Smoking is Dangerous to Your Health. Avoid second hand smoke Call the 24-hour hour crisis hotline for domestic abuse at Cyndee Chacon MD Jul 07, 2016 13:53
[2016-07-07] MEDS ORDERED: MUPIROCIN 2% OINT 22 GM TUBE TOPICAL SCH (14:00)
[2016-07-07] MEDS ORDERED: AMBI5TAB PO (14:39)
--- NOTE | 2016-07-07 14:41 | PD.ORT.PN ---
Subjective Subjective Remarks Doing well. Pain controlled Objective Vitals Vital Signs Date Time Temp Pulse Resp B/P Pulse Ox O2 Delivery O2 Flow Rate FiO2 07/07/16 11:43 97.6 65 18 132/72 100 07/07/16 08:49 96 21 07/07/16 07:47 96.6 62 18 140/79 100 07/07/16 03:49 96.7 57 17 113/64 95 07/06/16 23:54 97.8 61 16 133/72 94 07/06/16 19:44 97.8 60 17 110/57 95 07/06/16 19:18 Room Air 07/06/16 16:35 96 21 07/06/16 16:00 97.7 64 16 139/86 92 I/O 07/06/16 07/06/16 07/06/16 07/07/16 07/07/16 07/07/16 07:00 15:00 23:00 07:00 15:00 23:00 Intake Total 298 ml 1324 ml 1258 ml 911 ml 154 ml Output Total 0 ml Balance 298 ml 1324 ml 1258 ml 911 ml 154 ml Intake Oral 240 ml 960 ml 720 ml IV Total 298 ml 384 ml 298 ml 191 ml 154 ml Other 700 ml Output Urine Total 0 ml Estimated Blood Loss 0 ml Other 0 ml # Voids 4 3 3 # Bowel Movements 1 Result Diagram: 07/07/16 0529 07/05/16 1745 Objective Remarks Alert awake and oriented x 3. No acute distress. Neck: No pain with any range of motion and neck. Pulmonary: Normal respiratory effort. Left upper extremity exam: splint in place. Intact sensation distally in median, ulnar, and radial nerve. Intact motor in anterior interosseous, posterior interosseous, and ulnar nerve. 2+ radial artery pulses. Good cap refill Assessment & Plan Assessment and Plan POD #1left distal radius closed reduction and pinning Doing well, no complaints. DVT prophylaxis, SCD Weightbearing status: Nonweightbearing Dressing change: Do not remove splint Dispo: Stable and okay to discharge from orthopedic standpoint. Follow-up: 2 weeks, Dr. Gleason, [facility] Thank you for the consult and allowing us to take part in this patient's medical care. Angus Gleason Jr., MD Jul 07, 2016 14:41
== END 2016-07-07 18:27 | disposition home or self-care (01) | DRG 512 ==
LOC: NEPK 11:56 → N06A 16:36 → NEDA 19:35 → N06A 19:36
PROVIDERS: ADMIT Hospitalist; ATTEND Hospitalist
PROC: 0PSJ34Z Reposition Left Radius with Internal Fixation Device, Percutaneous Approach (ICD-10-PCS; principal; 2016-07-05)
DX: S52.502A Unspecified fracture of the lower end of left radius, initial encounter for closed fracture (principal); I10 Essential (primary) hypertension; J44.9 Chronic obstructive pulmonary disease, unspecified; K21.9 Gastro-esophageal reflux disease without esophagitis; M79.7 Fibromyalgia; M81.0 Age-related osteoporosis without current pathological fracture; F10.10 Alcohol abuse, uncomplicated; F17.210 Nicotine dependence, cigarettes, uncomplicated; Z86.14 Personal history of Methicillin resistant Staphylococcus aureus infection; Z98.84 Bariatric surgery status; W01.0XXA Fall on same level from slipping, tripping and stumbling without subsequent striking against object, initial encounter
CPT/HCPCS: 71020; 73100; 73110; 76000; 80048; 85007; 85014; 85018; 85027; 85610; 85730; 93005; 99284; J0131; J0690; J1580; J1885; J2270; J2405; J3010; J3370; J7030; J7120